=== PATIENT | female | born 2000 | race Caucasian/White ===

== ENCOUNTER 2024-08-16 21:24 | Emergency (ER) | payer BC, SELFPAY ==
--- NOTE | ~2024-08-16 | CT_ITS ---
CLINICAL HISTORY: bilateral lower quadrant pain CT abdomen and pelvis with contrast Comparison: CT - CT ABDOMEN PELVIS W IV CON - 08/17/24 04:56 EST Findings: No consolidation or effusion. Subcentimeter gallstone is seen in a normal-sized gallbladder. The liver, pancreas, spleen, bilateral adrenal glands, and bilateral kidneys appear within normal limits. Rqko-io-rbzfnmjt ascites is present with internal content higher than simple fluid (32 Hounsfield units). There is no pneumoperitoneum. There is mild wall thickening of several proximal small bowel loops in the left hemiabdomen (axial images 35-43 of series 3). There is no evidence of bowel obstruction. The appendix is not well visualized. The urinary bladder is partially distended. 1.9 cm peripherally enhancing cystic structure is seen in the left adnexal region (axial image 63 of series 3). No acute fracture. IMPRESSION: 1. Qrjc-oq-fvrwfbbt ascites with internal content higher than simple fluid, which may be secondary to proteinaceous content or blood products. 2. 1.9 cm peripherally enhancing cystic structure in the left adnexal region, which may represent a ruptured left ovarian cyst. 3. Mild wall thickening of several proximal small bowel loops in the left hemiabdomen suspicious for an enteritis. 4. Cholelithiasis. This document has been electronically signed by: Autumn Zavala on 08/17/2024 06:07:02
[2024-08-16 23:01] VITALS: BP 109/72; PULSE 90; RESP 18; TEMP 37.3; O2SAT 98; BMI 19.2
[2024-08-16 23:57] LABS: Eosinophils Percent Auto 0.3 % (0-4); Hemoglobin 12.1 g/dl (12.0-16.0); Imm Gran Abs Auto 0.03 X10*3/uL (0.00-0.03); Imm Gran Pct Auto 0.3 % (0.0-0.4); MANUAL DIFF FLAG SCAN; Mean Platelet Volume 9.9 fL (9.4-12.3); PLT CLUMP 1; Red Cell Distribution Width 13.4 % (11.0-16.0); SCAN SMEAR FLAG 1
[2024-08-16 23:59] LABS: Basophils Percent Auto 0.4 % (0-2); Hematocrit 36.4 % (37.0-47.0); Lymphocytes Absolute Auto 1.6 X10*3/uL (1.2-4.9); Lymphocytes Percent Auto 13.8 % (20-40); Mean Corpuscular HGB Conc 33.2 g/dl (31.0-35.0); Mean Corpuscular Hemoglobin 25.6 pg (27.0-33.0); Monocytes Absolute Auto 0.6 X10*3/uL (0.1-1.2); Monocytes Percent Auto 5.6 % (2-11); Neutrophils Percent Auto 79.6 % (45-73); Red Blood Count 4.73 X10*6/uL (4.20-5.50)
[2024-08-17 00:01] LABS: Platelet Count 291 X10*3/uL (160-400); White Blood Count 11.3 X10*3/uL (4.8-10.8)
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
[2024-08-17 00:15] LABS: Alanine Aminotransferase 22 U/L (0-31); Albumin Level 4.5 g/dL (3.5-5.0); Alkaline Phosphatase 49 U/L (39-117); Anion Gap 13 (12-20); Aspartate Amino Transferase 27 U/L (5-31); Bilirubin Total 0.9 mg/dL (0.0-1.0); Blood Urea Nitrogen 10 mg/dL (9-16); Calcium 8.8 mg/dL (8.4-10.2); Carbon Dioxide 21 mmol/L (22-29); Chloride 107 mmol/L (96-108); Creatinine Clr Calc Pharmacy 95.6; Estimated Glomerular Filt Rate > 60; Glucose Random 140 mg/dL (60-115); Potassium 3.8 mmol/L (3.3-5.1); Sodium 137 mmol/L (135-145); Total Protein 7.5 g/dL (6.5-8.0)
[2024-08-17 00:17] LABS: SLIDE REVIEW VERIFIED
[2024-08-17] MEDS: levonorgestreL 1.5 MG TABLET PO (01:19)
[2024-08-17] MEDS: cefTRIAXone sodium 500 MG, Lidocaine HCl 1 % MPF 1 ML IM (01:19)
[2024-08-17] MEDS: Ondansetron ODT 4 MG TAB.RAPDIS TRANSLINGU (01:19)
[2024-08-17 01:33] LABS: CT PCR NOT DETECTED (Not Detect.); NG PCR NOT DETECTED (Not Detect.)
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
[2024-08-17] MEDS: SANE Dolutegravir Sodium 50 MG TAB KIT PO (01:49)
[2024-08-17] MEDS: SANE Doxycycline Monohydrate 100 MG CAPSULE PO (01:50)
[2024-08-17] MEDS: SANE Emtricit/Tenofov DF 200/300 TABLET KIT 1 TAB PO (01:50)
[2024-08-17] MEDS: SANE metroNIDAZOLE 500 MG TABLET KIT PO (01:50)
--- NOTE | 2024-08-17 02:13 | PC.NURSE ---
MARIA A ENAMORADO (Lara) in room with patient at this time.
[2024-08-17 03:17] LABS: Appearance Urine Clear; Color Urine Yellow; Glucose Urine UA Negative (Negative); Leukocyte Esterase Urine Negative (Negative); Nitrite Urine Negative (Negative); PH 5.5 (5.0-9.0); Urine Blood Negative (Negative); Urine Ketones Trace mg/dL (Negative); Urine Pregnancy NEGATIVE (NEGATIVE); Urine Protein Negative (Neg-Trace)
[2024-08-17 03:18] LABS: UPreg QC Valid YES
[2024-08-17 03:22] LABS: Bacteria Urine None Seen (None Seen); Hyaline Casts Urine 0-2 /LPF (0-2); RBC Urine 0-2 /HPF (0-2); Squamous Epithelial Cell Urine 0-2 /HPF (0-2); WBC Urine 0-5 /HPF (0-5)
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
[2024-08-17 04:28] LABS: Syphilis Screen Nonreactive (Nonreactive)
[2024-08-17 04:39] LABS: HBS Num1 0.57 mIU/mL (0-7.99); HIV AB/AG Nonreactive (Nonreactive); HIV Num 1 0.05 S/CO (0.00-0.99); Hepatitis B Surface Antigen Negative (Negative); ~HepC Num1 0.14 S/CO (0.00-0.79); ~Hepatitis B Surface Antibody NONREACTIVE (Nonreactive); ~Hepatitis C Antibody Nonreactive (Nonreactive)
[2024-08-17 04:42] VITALS: BP 104/73; PULSE 69; RESP 14; O2SAT 99
--- NOTE | 2024-08-17 05:14 | PC.NURSE ---
patient resting quietly in room, awaiting results of ct scan
[2024-08-17] MEDS: iohexoL 350 MG/ML 100 ML INFUS..BTL 85 ML IV (05:15)
[2024-08-17 05:43] LABS: CT PCR NOT DETECTED (Not Detect.); NG PCR NOT DETECTED (Not Detect.)
[2024-08-17 06:12] VITALS: BP 106/63; PULSE 76; RESP 16; TEMP 36.8; O2SAT 99
[2024-08-17] MEDS: Acetaminophen 1,000 MG/100 ML PIGGYBACK 400 MG IV (06:12)
--- NOTE | 2024-08-17 06:22 | PC.NURSE ---
repeat labs being obtained and this time. IV tylenol infusing
[2024-08-17 06:29] LABS: Hematocrit 31.3 % (37.0-47.0); Hemoglobin 10.6 g/dl (12.0-16.0)
[2024-08-17 06:44] LABS: Alanine Aminotransferase 14 U/L (0-31); Aspartate Amino Transferase 27 U/L (5-31); Creatinine Clr Calc Pharmacy 91.5; Estimated Glomerular Filt Rate > 60
[2024-08-17] MEDS: 0.9 % Sodium Chloride 1,000 ML 999 ML IVCONT (07:23)
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
== END 2024-08-17 08:14 | disposition short-term general hospital (02) ==
PROVIDERS: Emergency Provider Emergency Medicine
DX: T74.21XA Adult sexual abuse, confirmed, initial encounter (principal); Y07.9 Unspecified perpetrator of maltreatment and neglect; X58.XXXA Exposure to other specified factors, initial encounter; N83.202 Unspecified ovarian cyst, left side; R10.2 Pelvic and perineal pain; R30.0 Dysuria
CPT/HCPCS: 36415; 74177; 80053; 81001; 81025; 82565; 84450; 84460; 85014; 85018; 85025; 86706; 86780; 86803; 87340; 87389; 87491; 87591; 96365; 96372; 99284; 99285; J0131; J0696; J2003; Q9967

== ENCOUNTER → 2024-08-17 04:28 | Outpatient (BNV) | payer BC, SELFPAY | PROVIDERS: Emergency Provider Emergency Medicine; Visit Provider Radiology Vascular & Interventional Radiology | DX: R10.31 Right lower quadrant pain (principal) | CPT/HCPCS: 74177 ==